=== PATIENT | female | born 2000 | race Hispanic/Latino ===

== ENCOUNTER 2019-05-19 10:40 | Emergency (ER) | payer OTHER ==
[2019-05-19] MEDS ORDERED: NAPROXEN 500 MG TABLET ONE (11:05)
[2019-05-19] MEDS ORDERED: CYCLOBENZAPRINE HCL 10 MG TABLET ONE (11:05)
== END 2019-05-19 11:55 | disposition home or self-care (01) ==
LOC: EDH 10:40
DX: S39.012A Strain of muscle, fascia and tendon of lower back, initial encounter (principal); V49.49XA Driver injured in collision with other motor vehicles in traffic accident, initial encounter; Y93.89 Activity, other specified; Y92.89 Other specified places as the place of occurrence of the external cause; Y99.8 Other external cause status